=== PATIENT | male | born 1960 | race Caucasian/White ===

== ENCOUNTER 2017-10-22 11:32 | Inpatient (IN) ==
[2017-10-22] MEDS ORDERED: NORMAL SALINE 10 ML SYRINGE FLUSH IVP PRN ×5 (11:39→15:24)
[2017-10-22] MEDS ORDERED: ONDANSETRON 4 MG/2 ML VIAL IVP ONE (11:39)
[2017-10-22] MEDS ORDERED: MORPHINE SULFATE 4 MG/1 ML IVP ONE (11:39)
[2017-10-22] MEDS ORDERED: Sodium Chloride 0.9% 1,000 ML PRIMARY IV ONE (11:39)
[2017-10-22 11:56] LABS: BASOPHILS # (AUTO) 0.05 10*3/UL; BASOPHILS % (AUTO) 0.3 % (0-1); EOSINOPHILS # (AUTO) 0.18 10*3/UL; EOSINOPHILS % (AUTO) 1.2 % (0-8); Hematocrit [HCT] 42.9 % (42.0-52.0); Hemoglobin [HGB] 14.2 g/dL (14.0-18.0); LYMPHOCYTES # (AUTO) 1.55 10*3/uL; MEAN CORPUSCULAR HEMOGLOBIN 30.3 PG (27-31); MEAN CORPUSCULAR HGB CONC 33.1 g/dL (33-37); MEAN CORPUSCULAR VOLUME 91.7 FL (80-90); MEAN PLATELET VOLUME 9.9 FL (7.4-12.2); MONOCYTES # (AUTO) 1.39 10*3/UL (0.3-0.8); MONOCYTES % (AUTO) 9.2 % (5-15); NEUTROPHILS # (AUTO) 11.93 10*3/UL; NEUTROPHILS % (AUTO) 78.6 % (50-80); RED BLOOD COUNT 4.68 10^6/uL (4.70-6.10)
--- NOTE | 2017-10-22 12:00 | PDOC ---
Male Genitourinary Problem HPI - General Chief Complaint: Integumentary Stated Complaint: scrotum swollen x 5 days Date Seen by Provider: 10/22/17 Time Seen by Provider: 11:45 Source: POSITIVE: Patient Exam Limitations: POSITIVE: No limitations Nurse's Notes Reviewed & Considered: Yes - History of Present Illness Initial Comments: The patient is a 57-year-old male who presents to the emergency department with right-sided scrotal swelling and pain. He states that he has a history of previous groin abscesses. He started to develop some increased pain and swelling about 5 days ago. He had a refill of doxycycline which he started taking about 4 days ago. The pain and swelling in the right scrotal area however has continued to worsen. He thought that he was running a fever last night although none today. He denies any increased difficulty urinating. He denies any history of diabetes. He currently rates the pain about an 8 out of 10 and he gets sharp shooting pains that are even more intense occasionally. - Patient Home Medications Home Medications: Home Medications doxycycline hyclate 100 mg capsule 100 mg PO BID #20 cap 10/18/17 - Patient Allergies Allergies/Adverse Reactions: Allergies 3 Allergy/AdvReac Type Severity Reaction Status Date / Time No Known Allergies Allergy Verified 10/22/17 11:37 Past Medical History - heen HEENT History: Denies History Cardiovascular History: Denies History Respiratory History: Denies History Gastrointestinal History: Denies History Genitourinary History: Denies History Endocrine History: Denies History Musculoskeletal History: Denies History Prosthesis or Implant: No Neurological History: Denies History Blood Disorders: Denies History Psychiatric History: Denies History History of Sexually Transmitted Diseases: No Cancer History: Denies History In Past Year Been Physically Harmed or Verbally Threatened: No History of MDRO: No History of Other Communicable Diseases: No Tobacco Use: Current Every Day Smoker Alcohol Use: Rarely In the Past 12 Months, Have Used or Abuse Any Substance: None Past Medical History Reviewed: Reviewed - No Changes ROS - Limitations ROS Limitations: No Limitations Constitution: REPORTS: Fever (Thinks he was running a fever last night) Cardiovascular: REPORTS: Denies Cardiac Symptoms Respiratory: REPORTS: Denies Resp Symptoms Neurological: REPORTS: Denies Neuro Symptoms Gastrointestinal: DENIES: Abdominal Pain, Vomitting Genitourinary: REPORTS: Difficulty Urinating (He states that he does have difficulty urinating off and on and is scheduled to see a urologist later this month, no increased difficulty with urination with current swelling) Eyes: REPORTS: Denies Symptoms ENT: REPORTS: Denies Symptoms Skin: DENIES: Rash Male Genitourinary Exam - General Appearance General Appearance: POSITIVE: Alert, Cooperative, No Acute Distress - Abdomen Abdomen: Soft: (All Quadrants), Denies Tenderness: (All Quadrants), No Distention: (All Quadrants) - Genital / Rectal Genitals: POSITIVE: Other (Examination of the genitalia reveals marked swelling and erythema/induration to the scrotal area with what appears to be an abscess in the right scrotal region) - HEENT HEENT: POSITIVE: Head Inspection Nml, Eyes Inspection Nml, Ears Inspection Nml - Neck Neck: POSITIVE: Normal Inspection - Respiratory Respiratory: POSITIVE: No Respiratory Distress, Breath Sounds Normal - Cardiovascular Cardiovascular: POSITIVE: Regular Rate and Rhythm, Heart Sounds Normal - Extremities Extremity: Normal Inspection: (All Extremities) - Neurological / Psychological Neurological: POSITIVE: Other (No focal neurologic deficits) Male Genitourinary Progress - Results Reviewed by me Xrays/CTs/US Reviewed by me: Yes Discussed with Radiologist: Yes Radiology Findings: Scrotal ultrasound reveals testicles which appear normal with good blood flow, he does have a scrotal/. Scrotal abscess which is large on the right side Lab Results Reviewed by Me: Yes CBC and BMP: 10/22/17 11:45 10/22/17 11:45 - Patient's Progress MDM / ED Course: Blood cultures and lactate were drawn with initial IV start. The patient did receive morphine 4 mg and Zofran 4 mg IV for pain. Scrotal ultrasound was obtained. This does show a large. He scrotal/scrotal abscess on the right side , testicles are normal with good blood flow. His white count is elevated at 15 and his CRP is elevated at 15. He was started on vancomycin 1.5 g IV. Surgical consultation was obtained from Dr. Foy and he has made preparations to take the patient to the operating room. Dr Cain will be admitting the patient to the hospitalist service after surgical drainage. - Consult Counseled: POSITIVE: Patient, RE: Lab Results, RE: Radiology Results, RE: DX Patient Care Time - Estimated PCT Patient Care Time (In Minutes): 40 Vital Signs - Recent Vital Signs Vital Signs: Vital Signs (Last 8 hours) Temp Pulse Resp BP Pulse Ox 10/22/17 11:40 96.7 F L 100 18 144/96 96 - VS Reviewed Vital Signs Reviewed: Yes Discharge Clinical Impression: Scrotal abscess Discharge Disposition: Transferred to OR Condition: Fair
[2017-10-22 12:02] LABS: PLATELET MORPHOLOGY COMMENT NORMAL MORPHOLOGY (NORM); RBC MORPHOLOGY COMMENT NORMAL MORPHOLOGY (NORM); WBC MORPHOLOGY COMMENT NORMAL MORPHOLOGY (NORM)
[2017-10-22 12:09] LABS: BLOOD UREA NITROGEN 15 mg/dL (7-22); BUN/CREATININE RATIO 16.66 (6-20); SERUM ALBUMIN 3.9 g/dL (3.5-4.8)
--- NOTE | 2017-10-22 13:10 | DI ---
EXAM: US Scrotum CLINICAL HISTORY: ITS.REASON pain /swelling Physician Notes: Tech Comments: TECHNIQUE: Real-time ultrasound of the scrotum with color Doppler and image documentation. COMPARISON: No relevant prior studies available. FINDINGS: Right testicle: Unremarkable. No mass. No torsion. Left testicle: Unremarkable. No mass. No torsion. Epididymides: 3 subcentimeter spermatoceles or cysts within the left epididymal head. No findings of epididymitis. Scrotum: 6.1 x 3.7 x 3.4 cm hypoechoic mass to the inferior-posterior rightward scrotum. No internal blood flow to suggest a solid mass. Abscess or liquefying hematoma or other complex fluid collection should be considered. IMPRESSION: 6.1 cm mass to the inferior-posterior rightward scrotum. Favor abscess or other complex fluid collection. No testicular mass or torsion.
--- NOTE | 2017-10-22 13:14 | CONSULT ---
Consult Note - Consult Consult Date: 10/22/17 Reason for Consult: PreOp Consulation : General Surgery Requesting Physician: Dr. Villar Primary Care Provider: NONE NONE - History of Present Illness History of Present Illness: This is a 57-year-old male who has a 5 day history of a scrotal swelling. His scheduled point he cannot even do his work. 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 He states that he's been having this drain spontaneously. Is going off-and-on for 3 years. He also states that he gets abscesses on the left side of his thigh. He has had antibiotics in the past and he started taking the doxycycline he is prescribed but this has not helped. Patient denies ever being told he is diabetic. His blood sugars are approximately 1:30 today. Patient does have 50, 000 white count today is afebrile. Review of Systems - Constitutional Constitutional: REPORTS: Negative System Review - Integumentary Integumentary: REPORTS: Other (Patient has history of psoriasis and abscesses then a thigh and scrotum) - Ear/Nose Exam Ear/Nose Exam: REPORTS: Negative System Review - Respiratory Respiratory: REPORTS: Negative System Review - Cardiovascular Cardiovascular: REPORTS: Negative System Review, Other (Hypertension) - Gastrointestinal Gastrointestinal / Abdominal: REPORTS: Constipation. DENIES: Negative System Review, Nausea, Vomiting, Diarrhea, Abdominal Pain, Bloody Stool, Poor Appetite , Heartburn, Regurgitation, Bloating, Lactose Intolerance, Melena, Bright Red Blood per Rectum, Other, See HPI - Genitourinary Genitourinary: REPORTS: Hematuria - Neurological Neurologic: REPORTS: Negative System Review - Psychiatric Psychiatric: REPORTS: Negative System Review Past Medical History Medical History: Hypertension Tobacco Use: Current Every Day Smoker In the Past 12 Months, Have Used or Abuse Any of the Following Substance: None Medication / Allergies Home Medications: Home Medications 3 Medication Instructions Recorded Confirmed Type doxycycline hyclate 100 mg capsule 100 mg PO BID #20 cap 10/18/17 10/22/17 Rx Allergies/Adverse Reactions: Allergies 3 Allergy/AdvReac Type Severity Reaction Status Date / Time No Known Allergies Allergy Verified 10/22/17 11:37 Results - Labs CBC and BMP: 10/22/17 11:45 10/22/17 11:45 Exam - Vitals Vital Signs: Vital Signs Temperature 96.7 F Temperature Source Temporal Artery Scan Pulse Rate [Pulse Oximeter] 100 Respiratory Rate 18 Blood Pressure [Left Arm] 144/96 Pulse Ox 96 Oxygen Delivery Method Room Air Height 5 ft 9 in Weight 300 lb - General General Appearance: No Acute Distress, Cooperative - Head Head Exam: Normocephalic - Eye Eye Exam: POSITIVE: PERRL - Respiratory Respiratory Exam: POSITIVE: Clear to Auscultation - Bilaterally, Breathing Non Labored - Cardiovascular Cardiovascular Exam: POSITIVE: RRR - Rectal Additional Rectal Exam Details: Will be done at time of patient being sedated - External Exam: POSITIVE: Swelling, Erythema
[2017-10-22] MEDS ORDERED: Lactated Ringers 1,000 ML PRIMARY IV SCH ×2 (13:15→15:24)
[2017-10-22] MEDS ORDERED: SUCCINYLCHOLINE CHLORIDE 20 MG/1 ML - 10 ML ONE (13:32)
[2017-10-22] MEDS ORDERED: fentaNYL Inj 250 MCG/5 ML VIAL ONE (13:32)
[2017-10-22] MEDS ORDERED: PROPOFOL 10 MG/1 ML (200 MG/20 ML) VIAL IV ONE ×2 (13:32→14:27)
[2017-10-22] MEDS ORDERED: MIDAZOLAM 5 MG/1 ML ONE (13:32)
[2017-10-22] MEDS ORDERED: LIDOCAINE MPF 2% - 5 ML (20 MG/1 ML) ONE ×2 (13:32→14:39)
[2017-10-22] MEDS ORDERED: LIDOCAINE HCL 2 % 10 ML JELLY URO-JECT TOPICAL ONE (13:39)
[2017-10-22] MEDS ORDERED: ONDANSETRON 4 MG/2 ML VIAL ONE (13:45)
[2017-10-22] MEDS ORDERED: DEXAMETHASONE PF 10 MG/1 ML VIAL ONE (13:45)
[2017-10-22] MEDS ORDERED: Metoclopramide Inj 10 MG/2 ML VIAL ONE (13:45)
[2017-10-22] MEDS ORDERED: PANTOPRAZOLE IV 40 MG VIAL ONE (13:46)
[2017-10-22] MEDS ORDERED: CITRIC ACID/SODIUM CITRATE 30 ML CUP PO ONE (13:46)
[2017-10-22] MEDS ORDERED: Sodium Chloride 0.9% vial 10 ML ONE (13:47)
[2017-10-22 13:49] LABS: BILIRUBIN,URINE SMALL (NEG); CLARITY,URINE CLEAR (CLEAR); COLOR,URINE YELLOW (Y); GLUCOSE, URINE (UA) NEGATIVE (NEG); OCCULT BLOOD,URINE Trace-lysed (NEG); PROTEIN,URINE TRACE mg/dl (NEG); UROBILINOGEN,URINE 0.2 EU/dL (0.2)
[2017-10-22 13:56] LABS: URINE SAMPLE TYPE CLEAN CATCH URINE
[2017-10-22] MEDS ORDERED: HYDROmorphone 2 MG/1 ML IVP PRN (13:58)
[2017-10-22] MEDS ORDERED: HYDROmorphone 2 MG/1 ML ONE (14:37)
[2017-10-22] MEDS ORDERED: KETOROLAC 30 MG/1 ML VIAL ONE (15:05)
--- NOTE | 2017-10-22 15:10 | GEN.OPNOTE ---
Operative Note Surgery Date: 10/22/17 Preoperative Diagnosis: Scrotal abscess Postoperative Diagnosis: Scrotal abscess on right side of scrotum. Abscess on the posterior aspect of left thigh Procedure: I&D of an abscess of the scrotum. I&D of an abscess of left thigh Surgeon: Aquiles Foy MD Anesthesia Provider: Colton Salas CRNA Anesthesia Type: General Estimated Blood Loss (mL): 15 Fluids: Lactated Ringer's please see see anesthesia notes in EMR Pathology: Anaerobic aerobic and Gram stain obtained Indications: Patient has an abscess on the right side of his scrotum Findings: Abscess on the right side of the scrotum. An abscess on the left posterior thigh Complications: None Operative Summary: Patient is brought in operative room placed in supine position. Given general trach anesthesia. Was then placed and posterior lithotomy position. Prepped draped sterile fashion. Timeout performed per protocols. I then aspirated the abscess cavity with an 18-gauge needle dropped 10 mL of pus. This was sent for Gram stain and cultures. I then used electrocautery to open up the abscess cavity. I extended the incision is mostly posteriorly as possible to allow better drainage. Woke up all loculations with hemostats. We irrigated with force lavage. I then use Multidex to pack the wound with gauze. At this time we went inspected a suspicious area on the left side of the patient states that is chronically there. This is separate from the original scrotal abscess. Pressed on the skin we got pus come out of poor. I then using electrocautery to open up the abscess cavity and extended to all these subcutaneous tracts. I then debrided all the chronic inflammatory tissue out. And then packed the wound. Patient allergies well counts were correct. Procedure Codes - Surgical Procedures Primary Surgical Procedure: 66227 : I&D, Simple Abscess Secondary Surgical Procedure: [id number] : I&D, Simple Abscess
[2017-10-22] MEDS ORDERED: DOCUSATE 100 MG CAPSULE PO PRN ×3 (15:11→15:24)
[2017-10-22] MEDS ORDERED: ONDANSETRON 4 MG/2 ML VIAL IVP PRN ×3 (15:11→15:24)
[2017-10-22] MEDS ORDERED: CALCIUM CARBONATE 500 MG (TUMS) CHEWABLE TABLET PO PRN ×3 (15:11→15:24)
[2017-10-22] MEDS ORDERED: LIDOCAINE W/ SODIUM BICARB 0.5 ML SYR SUBD PRN (15:17)
[2017-10-22] MEDS ORDERED: ACETAMINOPHEN 325 MG TABLET PO PRN (15:17)
[2017-10-22] MEDS ORDERED: cefTRIAXone Inj 1 GM in Sodium Chloride 0.9% 100 ML IV SCH (15:30)
[2017-10-22] MEDS ORDERED: Clindamycin 900mg (Premix) 900 MG/50 ML BAG IV SCH (16:00)
--- NOTE | 2017-10-22 16:23 | CRNA.PROGR ---
Anesthesia Time - - Start date: 10/22/17 End date: 10/22/17 - Procedure/Recovery Time Anesthesia : Time In: 14:04 Anesthesia : Time Out: 15:35 Anesthesia : Total Time: 91 - Total Anesthesia Time Total Anesthesia Time (minutes): 91 - Other Weight: 136.078 kg Height: 5 ft 9 in Body Mass Index (BMI): 44.3 Physical Status: P3 Anesthesia Type: General Anesthesia : ET
--- NOTE | 2017-10-22 16:24 | CRNA.PROGR ---
Post Anesthesia Phase II - Post Anesthesia Phase II Patient Stable and Discharged To: Phase II Care Assumed By Surgeon: Manfred Foy MD Temperature: 99.2 F Pulse Rate: 86 Respiratory Rate: 17 Pulse Ox: 90 Total Bethany Score at Discharge: 10 Post Anesthesia Discharge Criteria Met: Yes
[2017-10-22] MEDS: HEPARIN 5000 UNIT/1 ML SUBCUT SCH (17:21)
--- NOTE | 2017-10-22 19:10 | PDOC ---
HPI - History of Present Illness History of Present Illness: This very nice 57-year-old gentleman he is been having some scrotal swelling and pus draining from his groin over the last week to the point where he got worse in the his antibiotics did not work and decided to come into the hospital for further evaluation and treatment. He is status post the drainage and I&D doing great. This is been going on for 3 years he has used antibiotics before with the swelling and spontaneous drainage. 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 [facility] Denies fever nausea vomiting Past Medical History Medical History: Hypertension Tobacco Use: Current Every Day Smoker In the Past 12 Months, Have Used or Abuse Any of the Following Substance: None Alcohol Use: None Medication / Allergies Home Medications: Home Medications 3 Medication Instructions Recorded Confirmed Type doxycycline hyclate 100 mg capsule 100 mg PO BID #20 cap 10/18/17 10/22/17 Rx Allergies/Adverse Reactions: Allergies 3 Allergy/AdvReac Type Severity Reaction Status Date / Time No Known Allergies Allergy Verified 10/22/17 16:48 Review of Systems - Review of Systems All Systems: Reviewed & No Additional Complaints Except as Stated - Respiratory Respiratory: DENIES: Negative System Review, Cough, Sputum, Dyspnea At Rest, Dyspnea with Exertion, Pleuritic Pain, Hemoptysis, Wheezing, Other, See HPI - Cardiovascular Cardiovascular: DENIES: Negative System Review, Chest Pain, Edema, Syncope, Palpitations, Orthopnea, Paroxysmal Nocturnal Dyspnea, Other, See HPI - Gastrointestinal Gastrointestinal / Abdominal: DENIES: Negative System Review, Nausea, Vomiting, Diarrhea, Constipation, Abdominal Pain, Bloody Stool, Poor Appetite, Heartburn, Regurgitation, Bloating, Lactose Intolerance, Melena, Bright Red Blood per Rectum, Other, See HPI - Genitourinary Genitourinary: DENIES: Negative System Review, Pain, Burning, Hematuria, Incontinence, Urgency, Hesitant Stream, Decreased Stream, Nocutria, Discharge, Sexual Dysfunction, Other, See HPI Exam - Vitals Vital Signs: Vital Signs Temperature 98.1 F Temperature Source Oral Pulse Rate [Pulse Oximeter] 82 Pulse Rate 86 Respiratory Rate 18 Blood Pressure [Left Arm] 127/59 Blood Pressure 140/76 Pulse Ox 95 Oxygen Flow Rate 2 Oxygen Delivery Method Nasal Cannula Height 5 ft 9 in Weight 300 lb - General General Appearance: No Acute Distress, Cooperative - Head Head Exam: Normal Inspection, Normocephalic, Atraumatic - Eye Eye Exam: POSITIVE: Normal Appearance, PERRL, EOMI, No Scleral Icterus - Neck Neck Exam: Normal Inspection, Full ROM, No Tenderness, No Lymphadenopathy, No Thyromegaly, JVP is not Raised - Respiratory Respiratory Exam: POSITIVE: Clear to Auscultation - Bilaterally, Breathing Non Labored, Normal To Percussion, Normal to Percussion and Palpation - Cardiovascular Cardiovascular Exam: POSITIVE: RRR, No Murmur, No Clicks, No Gallops, No Rubs, PMI Non-Displaced - GI/Abdominal GI/Abdominal Exam: POSITIVE: Normal Bowel Sounds, Non Tender, Non Distended, Soft, No Masses, No Hepatomegaly, No Splenomegaly, No Organomegaly - External Exam: POSITIVE: Lesion(s) (Lesions in the groin packed status post surgery not examined) - Extremities Extremities Exam: POSITIVE: No Clubbing Present, No Edema Present, No Cyanosis Present - Neurological Neurological Exam: POSITIVE: Alert, Oriented x 3, Reflexes Normal, Normal Gait, CN II-XII Intact, No Facial Droop, Speech Intact / Clear, Moves All Extremities Equally, No Fasciculations, No Clonus - Psychiatric Psychiatric Exam: POSITIVE: Normal Affect, Normal Mood - Integumentary Integumentary Exam: POSITIVE: Normal Color, Warm, Dry, Intact Results - Labs CBC and BMP: 10/22/17 11:45 10/22/17 11:45 Assessment and Plan - Patient Problems (1) Scrotal abscess Current Visit: Yes Status: Acute Comment: Status post surgery continue vancomycin and ceftriaxone culture showed gram-negative rods gram-positive cocci discussed with general surgery no gangrene no necrosis will stop Clinda further antibiotics depending on cultures Code(s): N49.2 - Inflammatory disorders of scrotum (2) Obesity Current Visit: No Status: Chronic Comment: Counseled on weight management low-carb diet exercise Code(s): E66.9 - Obesity, unspecified Qualifiers: Obesity type: due to excess calories Obesity classification: adult class 3 (BMI >= 40) Serious obesity comorbidity presence: with serious comorbidity Body mass index: BMI 45.0-49.9 Qualified Code(s): E66.09 - Other obesity due to excess calories; Z68.42 - Body mass index (BMI) 45.0-49.9, adult (3) Recurrent and persistent hematuria Current Visit: No Status: Chronic Comment: We'll need a referral to the urology patient states he only has an appointment Code(s): N02.9 - Recurrent and persistent hematuria with unspecified morphologic changes (4) Hyperglycemia Current Visit: Yes Status: Acute Comment: Check hemoglobin A1c Code(s): R73.9 - Hyperglycemia, unspecified
[2017-10-22] MEDS: cefTRIAXone Inj 2 GM in Sodium Chloride 0.9% 100 ML IV SCH (20:18)
[2017-10-23] MEDS ORDERED: Vancomycin Inj 1gm vial ONE (00:01)
[2017-10-23] MEDS: HEPARIN 5000 UNIT/1 ML SUBCUT SCH ×4 (00:16→22:38)
[2017-10-23 05:46] LABS: BASOPHILS # (AUTO) 0.01 10*3/UL; BASOPHILS % (AUTO) 0.1 % (0-1); EOSINOPHILS # (AUTO) 0 10*3/UL; EOSINOPHILS % (AUTO) 0 % (0-8); Hematocrit [HCT] 38.9 % (42.0-52.0); Hemoglobin [HGB] 12.5 g/dL (14.0-18.0); LYMPHOCYTES # (AUTO) 0.77 10*3/uL; MEAN CORPUSCULAR HEMOGLOBIN 29.9 PG (27-31); MEAN CORPUSCULAR HGB CONC 32.1 g/dL (33-37); MEAN CORPUSCULAR VOLUME 93.1 FL (80-90); MEAN PLATELET VOLUME 11.2 FL (7.4-12.2); MONOCYTES # (AUTO) 0.46 10*3/UL (0.3-0.8); MONOCYTES % (AUTO) 3.7 % (5-15); NEUTROPHILS # (AUTO) 11.14 10*3/UL; NEUTROPHILS % (AUTO) 89.6 % (50-80); RED BLOOD COUNT 4.18 10^6/uL (4.70-6.10)
[2017-10-23 05:59] LABS: BLOOD UREA NITROGEN 19 mg/dL (7-22)
[2017-10-23 06:00] LABS: PLATELET MORPHOLOGY COMMENT NORMAL MORPHOLOGY (NORM); RBC MORPHOLOGY COMMENT NORMAL MORPHOLOGY (NORM); WBC MORPHOLOGY COMMENT NORMAL MORPHOLOGY (NORM)
[2017-10-23 06:04] LABS: HEMOGLOBIN A1C 6.16 % (4.2-6.0)
--- NOTE | 2017-10-23 08:34 | PDOC(PROG) ---
Objective : Data - Labs CBC and BMP: 10/23/17 04:10 10/23/17 04:10 Assessment and Plan - Patient Problems (1) Scrotal abscess Current Visit: Yes Status: Acute Comment: continue vanc and ceftriaxone await cultures Code(s): N49.2 - Inflammatory disorders of scrotum (2) Obesity Current Visit: No Status: Chronic Comment: counseled on low carb diet Code(s): E66.9 - Obesity, unspecified Qualifiers: Obesity type: due to excess calories Obesity classification: adult class 3 (BMI >= 40) Serious obesity comorbidity presence: with serious comorbidity Body mass index: BMI 45.0-49.9 Qualified Code(s): E66.09 - Other obesity due to excess calories; Z68.42 - Body mass index (BMI) 45.0-49.9, adult (3) Recurrent and persistent hematuria Current Visit: No Status: Chronic Comment: has apt with urology Code(s): N02.9 - Recurrent and persistent hematuria with unspecified morphologic changes (4) Hyperglycemia Current Visit: Yes Status: Acute Comment: reiterated lifestyle modifications Code(s): R73.9 - Hyperglycemia, unspecified
[2017-10-23] MEDS: ASCORBIC ACID 500 MG TABLET PO SCH (09:35)
[2017-10-23] MEDS: POTASSIUM CHLORIDE 20 MEQ TAB PO SCH ×2 (09:35→21:41)
[2017-10-23] MEDS: NORMAL SALINE 10 ML SYRINGE FLUSH IVP PRN ×2 (09:35→14:52)
--- NOTE | 2017-10-23 11:09 | PDOC(PROG) ---
Subjective Post Op Day: postop day 1 Pain Management: PO Cuello Catheter: No Flatus: Yes Diet: Regular Date and Time of Service: 10/24/2017 at 10:30 Interval History: Patient states he overall feels better pain is lot better control. Objective : Data - Labs CBC and BMP: 10/23/17 04:10 10/23/17 04:10 - Vital Signs Vital Signs and I&O: Vital Signs - Last Taken Temperature 96.8 F 10/23/17 08:20 Pulse Rate 81 10/23/17 08:20 Respiratory Rate 20 10/23/17 08:20 Blood Pressure 121/53 10/23/17 08:20 Pulse Ox 92 10/23/17 08:20 Intake and Output (24hr x 4 totals) 10/21/17 10/22/17 10/23/17 10/24/17 05:59 05:59 05:59 05:59 Intake Total 4019 / 4019 Output Total 15 / 15 Balance 4004 / 4004 Objective : Exam - General General Appearance: No Acute Distress Assessment and Plan - Patient Problems (1) Scrotal abscess Current Visit: Yes Status: Acute Code(s): N49.2 - Inflammatory disorders of scrotum - Assessment / Plan Additional Assessment/Plan Details: Overall the patient is doing very well his white count is still elevated would like to remind IV antibodies white count is normal and we might be a switch diet oral antibiotics. He needs a line had do packing today
--- NOTE | 2017-10-23 11:17 | PDOC(PROG) ---
Interval History: Doing great today feels 100 times better no nausea no vomiting no chest pain Objective : Data - Labs CBC and BMP: 10/23/17 04:10 10/23/17 04:10 Objective : Exam - General General Appearance: Cooperative - Head Head Exam: Normal Inspection, Normocephalic, Atraumatic - Neck Neck Exam: Normal Inspection, Full ROM, No Tenderness - Respiratory Respiratory Exam: Clear to Auscultation - Bilaterally, Breathing Non Labored, Normal To Percussion, Normal to Percussion and Palpation - Cardiovascular Cardiovascular Exam: RRR, No Murmur, No Clicks, No Gallops, No Rubs, PMI Non- Displaced - GI/Abdominal GI/Abdominal Exam: Normal Bowel Sounds, Non Tender, Non Distended, Soft, No Masses, No Hepatomegaly, No Splenomegaly, No Organomegaly Assessment and Plan - Patient Problems (1) Scrotal abscess Current Visit: Yes Status: Acute Comment: Continue IV antibiotics white count is improving but still elevated cultures are still pending Code(s): N49.2 - Inflammatory disorders of scrotum (2) Obesity Current Visit: No Status: Chronic Code(s): E66.9 - Obesity, unspecified Qualifiers: Obesity type: due to excess calories Obesity classification: adult class 3 (BMI >= 40) Serious obesity comorbidity presence: with serious comorbidity Body mass index: BMI 45.0-49.9 Qualified Code(s): E66.09 - Other obesity due to excess calories; Z68.42 - Body mass index (BMI) 45.0-49.9, adult (3) Recurrent and persistent hematuria Current Visit: No Status: Chronic Comment: She will need to follow-up with urology Code(s): N02.9 - Recurrent and persistent hematuria with unspecified morphologic changes (4) Hyperglycemia Current Visit: Yes Status: Acute Comment: Counseled on diet and lifestyle changes Code(s): R73.9 - Hyperglycemia, unspecified (5) Hypomagnesemia Current Visit: Yes Status: Acute Comment: Replace with 2 g Code(s): E83.42 - Hypomagnesemia
[2017-10-23] MEDS: HYDROcodone-APAP 7.5 MG-325 MG TABLET PO PRN (11:22)
[2017-10-23] MEDS ORDERED: Magnesium Sulfate 2gm (Premix) 2 GM/50 ML BAG IV ONE (11:31)
[2017-10-23] MEDS: MORPHINE SULFATE 2 MG/1 ML IVP PRN (12:30)
[2017-10-23] MEDS ORDERED: MORPHINE SULFATE 2 MG/1 ML ONE (12:49)
[2017-10-23] MEDS: cefTRIAXone Inj 2 GM in Sodium Chloride 0.9% 100 ML IV SCH (19:01)
[2017-10-24] MEDS: IBUPROFEN 600 MG TABLET PO PRN ×2 (06:00→18:45)
[2017-10-24 06:51] LABS: BASOPHILS # (AUTO) 0.03 10*3/UL; BASOPHILS % (AUTO) 0.3 % (0-1); EOSINOPHILS # (AUTO) 0.05 10*3/UL; EOSINOPHILS % (AUTO) 0.4 % (0-8); Hematocrit [HCT] 39.2 % (42.0-52.0); Hemoglobin [HGB] 12.3 g/dL (14.0-18.0); LYMPHOCYTES # (AUTO) 2.36 10*3/uL; MEAN CORPUSCULAR HEMOGLOBIN 29.9 PG (27-31); MEAN CORPUSCULAR HGB CONC 31.4 g/dL (33-37); MEAN CORPUSCULAR VOLUME 95.1 FL (80-90); MEAN PLATELET VOLUME 10.8 FL (7.4-12.2); MONOCYTES # (AUTO) 0.79 10*3/UL (0.3-0.8); MONOCYTES % (AUTO) 6.9 % (5-15); NEUTROPHILS # (AUTO) 8.07 10*3/UL; NEUTROPHILS % (AUTO) 70.2 % (50-80); RED BLOOD COUNT 4.12 10^6/uL (4.70-6.10)
[2017-10-24 07:06] LABS: PLATELET MORPHOLOGY COMMENT NORMAL MORPHOLOGY (NORM); RBC MORPHOLOGY COMMENT NORMAL MORPHOLOGY (NORM); WBC MORPHOLOGY COMMENT NORMAL MORPHOLOGY (NORM)
[2017-10-24 07:13] LABS: BLOOD UREA NITROGEN 22 mg/dL (7-22); SERUM ALBUMIN 3.2 g/dL (3.5-4.8)
[2017-10-24] MEDS ORDERED: Sodium Chloride 0.9% 50 ML ONE (07:59)
[2017-10-24] MEDS: ASCORBIC ACID 500 MG TABLET PO SCH (09:47)
[2017-10-24] MEDS: HEPARIN 5000 UNIT/1 ML SUBCUT SCH ×3 (09:47→23:26)
--- NOTE | 2017-10-24 11:01 | PDOC(PROG) ---
Interval History: Patient is doing great without a headache last night I believe is from caffeine withdrawal it is better now that he had some coffee. Cultures will be ready tomorrow to see what is growing at that point we'll make a better determination on the other type of antibiotics to use and narrow it Objective : Data - Labs CBC and BMP: 10/24/17 04:24 10/24/17 04:24 Objective : Exam - Head Head Exam: Normal Inspection, Normocephalic, Atraumatic - Respiratory Respiratory Exam: Clear to Auscultation - Bilaterally, Breathing Non Labored, Normal To Percussion, Normal to Percussion and Palpation - Cardiovascular Cardiovascular Exam: RRR, No Murmur, No Clicks, No Gallops, No Rubs, PMI Non- Displaced - GI/Abdominal GI/Abdominal Exam: Normal Bowel Sounds, Non Tender, Non Distended, Soft, No Masses, No Hepatomegaly, No Splenomegaly, No Organomegaly Assessment and Plan - Patient Problems (1) Scrotal abscess Current Visit: Yes Status: Acute Comment: Continue IV antibiotics I discussed the this patient with microbiology cultures will be ready tomorrow morning Code(s): N49.2 - Inflammatory disorders of scrotum (2) Obesity Current Visit: No Status: Chronic Comment: Counseled on weight loss Code(s): E66.9 - Obesity, unspecified Qualifiers: Obesity type: due to excess calories Obesity classification: adult class 3 (BMI >= 40) Serious obesity comorbidity presence: with serious comorbidity Body mass index: BMI 45.0-49.9 Qualified Code(s): E66.09 - Other obesity due to excess calories; Z68.42 - Body mass index (BMI) 45.0-49.9, adult (3) Recurrent and persistent hematuria Current Visit: No Status: Chronic Comment: Will need a referral to urology Code(s): N02.9 - Recurrent and persistent hematuria with unspecified morphologic changes (4) Hyperglycemia Current Visit: Yes Status: Acute Comment: Stable Code(s): R73.9 - Hyperglycemia, unspecified (5) Hypomagnesemia Current Visit: Yes Status: Acute Comment: Replaced Code(s): E83.42 - Hypomagnesemia
[2017-10-24] MEDS: HYDROcodone-APAP 7.5 MG-325 MG TABLET PO PRN (11:04)
[2017-10-24] MEDS: MORPHINE SULFATE 2 MG/1 ML IVP PRN (12:10)
--- NOTE | 2017-10-24 13:05 | PDOC(PROG) ---
Subjective Post Op Day: postop day 2 Pain Management: PO Cuello Catheter: No Flatus: Yes Diet: Regular Date and Time of Service: 10/24/2017 at 12:30 Interval History: Patient overall feels a lot better having no problems. States dressing changes a lot better today than yesterday Objective : Data - Labs CBC and BMP: 10/24/17 04:24 10/24/17 04:24 - Vital Signs Vital Signs and I&O: Vital Signs - Last Taken Temperature 97.9 F 10/24/17 11:10 Pulse Rate 67 10/24/17 11:10 Respiratory Rate 18 10/24/17 11:10 Blood Pressure 142/78 10/24/17 11:10 Pulse Ox 93 10/24/17 11:10 Intake and Output (24hr x 4 totals) 10/22/17 10/23/17 10/24/17 10/25/17 05:59 05:59 05:59 05:59 Intake Total 4019 / 4019 540 / 540 580 / 580 Output Total 15 / 15 Balance 4004 / 4004 540 / 540 580 / 580 Objective : Exam - General General Appearance: No Acute Distress, Cooperative Assessment and Plan - Patient Problems (1) Scrotal abscess Current Visit: Yes Status: Acute Code(s): N49.2 - Inflammatory disorders of scrotum - Assessment / Plan Additional Assessment/Plan Details: The surgical standpoint he can be discharged home. He has a follow-up with me in 1 week's time. He is to do daily dressing changes Multidex and gauze. We' ll talk retail planner about maybe set this up to be done as an outpatient at the hospital
[2017-10-24] MEDS: cefTRIAXone Inj 2 GM in Sodium Chloride 0.9% 100 ML IV SCH (18:45)
[2017-10-25] MEDS: IBUPROFEN 600 MG TABLET PO PRN (06:47)
[2017-10-25] MEDS: HEPARIN 5000 UNIT/1 ML SUBCUT SCH (06:47)
[2017-10-25 07:45] LABS: Hematocrit [HCT] 40.5 % (42.0-52.0); MEAN CORPUSCULAR HGB CONC 32.1 g/dL (33-37); MEAN CORPUSCULAR VOLUME 93.3 FL (80-90); MEAN PLATELET VOLUME 9.9 FL (7.4-12.2); RED BLOOD COUNT 4.34 10^6/uL (4.70-6.10)
--- NOTE | 2017-10-25 08:01 | DCSUMMARY ---
Hospitalization Summary Hospital Course: Final Discharge Diagnosis: Current Visit Problems Problem Status Onset Code Scrotal abscess Acute N49.2 Hyperglycemia Acute R73.9 Hypomagnesemia Acute E83.42 Diagnostic Data, Laboratory Data, and Procedures of Signifigance: Laboratory Results 10/25/17 Range/Units 07:38 WBC 11.49 H (4.8-10.8) 10^3/uL RBC 4.34 L (4.70-6.10) 10^6/uL Hgb 13.0 L (14.0-18.0) g/dL Hct 40.5 L (42.0-52.0) % MCV 93.3 H (80-90) FL MCH 30.0 (27-31) PG MCHC 32.1 L (33-37) g/dL RDW Std Deviation 45.6 (39-50) fL RDW Coeff of Lee 13.6 (11.5-14.5) % Plt Count 265 (140-350) 10*3/uL MPV 9.9 (7.4-12.2) FL History and Physical pertinent to Admission: Course of Hospitalization: Is a very nice 57-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 He was taken to the OR by Dr. destiny Cuevas who drained the abscess and packed it patient was taught how to do his own dressings which she will continue to do his white count has normalized Gram stain were growing gram-positive cocci. He will be discharged home on Augmentin 875 twice a day for a total of 7 more days he did receive 2 days of vancomycin and ceftriaxone. His hemoglobin A1c is borderline at 6.1 I have the records ended lifestyle changes low-carb diet and exercise and follow-up with his primary care physician as well. We also have made him a referral to urology for hematuria On the date of discharge, the patient was examined: Gen.: [No acute distress, alert, nontoxic] Heart: [Regular rate and rhythm, no murmurs, clicks, gallops, or rubs] Lungs: [Clear to auscultation bilaterally, breathing is nonlabored] Abdomen/GI: [Normal tones on auscultation, soft, nontender, nondistended] Musculoskeletal/extremities: [No clubbing, cyanosis, or edema] Vitals reviewed and are listed below Vital Signs (24 hrs) Temp Pulse Resp BP Pulse Ox 10/25/17 06:31 98.2 F 54 L 20 135/76 96 10/25/17 04:44 90 10/25/17 04:39 98.5 F 60 16 149/79 93 10/25/17 00:03 98.5 F 65 20 128/75 93 10/24/17 19:44 97.2 F 62 20 125/71 94 10/24/17 16:16 97.5 F 53 L 17 137/75 97 10/24/17 11:10 97.9 F 67 18 142/78 93 10/24/17 11:07 97.6 F 79 17 121/90 96 10/24/17 09:44 98 Assessment and Plan: 1. As per discharge assessments above 2. Disposition: Home 3. Condition on discharge, stable and improved. 4. Diet: regular diet 5. Activities: resume normal activities 6. Follow-Up: 1. [PCP] 2. 7. Medications at the Time of Discharge: 8. Time, care, counseling and coordination of care for this discharge is greater than 30 minutes. Exam - Vitals Vital Signs: Vital Signs Temperature 98.2 F Temperature Source Temporal Artery Scan Pulse Rate [Pulse Oximeter] 54 Pulse Rate 86 Respiratory Rate 20 Blood Pressure [Left Arm] 135/76 Blood Pressure 140/76 Pulse Ox 96 Oxygen Flow Rate 1 Oxygen Delivery Method Room Air Height 5 ft 9 in Weight 307 lb 12.8 oz Patient Problems - Patient Problem List (1) Scrotal abscess Current Visit: Yes Status: Acute Code(s): N49.2 - Inflammatory disorders of scrotum Category: Medical (2) Obesity Current Visit: No Status: Chronic Code(s): E66.9 - Obesity, unspecified Qualifiers: Obesity type: due to excess calories Obesity classification: adult class 3 (BMI >= 40) Serious obesity comorbidity presence: with serious comorbidity Body mass index: BMI 45.0-49.9 Qualified Code(s): E66.09 - Other obesity due to excess calories; Z68.42 - Body mass index (BMI) 45.0-49.9, adult Category: Medical (3) Recurrent and persistent hematuria Current Visit: No Status: Chronic Code(s): N02.9 - Recurrent and persistent hematuria with unspecified morphologic changes Category: Medical (4) Hyperglycemia Current Visit: Yes Status: Acute Code(s): R73.9 - Hyperglycemia, unspecified Category: Medical (5) Hypomagnesemia Current Visit: Yes Status: Acute Code(s): E83.42 - Hypomagnesemia Category : Medical
[2017-10-25 08:15] LABS: BLOOD UREA NITROGEN 19 mg/dL (7-22); BUN/CREATININE RATIO 21.11 (6-20); SERUM ALBUMIN 3.3 g/dL (3.5-4.8)
[2017-10-25] MEDS: ASCORBIC ACID 500 MG TABLET PO SCH (08:31)
[2017-10-25] MEDS ORDERED: Amoxicill/Clav 875/125mg Tab 1 TAB TAB PO SCH (09:00)
[2017-10-25] MEDS: HYDROcodone-APAP 7.5 MG-325 MG TABLET PO PRN (11:04)
[2017-10-25 12:46] VITALS: BP 177/83; RESP 18; TEMP 97.7; O2SAT 95
== END 2017-10-25 13:02 | disposition home or self-care (01) | DRG 728 ==
LOC: ER 11:32 → OPS 13:10 → MED/SURG 16:33
PROVIDERS: ADMIT Surgery; ATTEND Internal Medicine